=== PATIENT | male | born 1950 | race Hispanic/Latino ===

== ENCOUNTER 2018-10-03 07:35 | Inpatient (IN) | payer MEDICARE ==
--- NOTE | 2018-10-03 07:56 | ED PDOC ---
Arrival/HPI - General Historian: Patient, Spouse, Family (daughter and son) - History of Present Illness Narrative History of Present Illness (Text): This is a 68 year old male with PMH of NIDDM2, HTN, hypercholesterolemia, obesity, smoking who [place] ED [place] after experiencing worsening chest pain for 4 days. Currently, pt is asymptomatic and has no compla ints. Pt describes the pain as burning sensation in the midsternum, radiating to the back and epigastric area, associated with extertional SOB. Pt denied visual changes, ripping or tearing quality to the pain, dizziness, lightheadedness, leg pain or swelling. Patient and family (daughter and ) report that the patient was seen by the doctor on the cruise ship yesterday 10/02/18 who performed and EKG where it was noted to show STEMI in leads II, III, aVF. Pt was given ASA, NTG, Heparin and fibrinolytic, and started on plavix. Pt received Lovenox, ASA this morning. Denies fever, chills, chest pain, sob, palpitations, abdominal pain, n/v/d, weakness, lightheadedness, numbness or tingling, focal weakness. 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 PMH: NIDDM2, HTN, hypercholesterolemia, obesity PSH: cholecystectomy many years ago, knee replacement years ago, right toe amputation march 2018 Meds: See MAR Allx: NKDA Social Hx: (+) etoh, (+) smoking, (-) illcit drug use Time/Duration: < week <David Jarrell - Last Filed: 10/03/18 08:55> <John Ireland - Last Filed: 10/03/18 10:09> - General Chief Complaint: Chest Pain Past Medical History - Provider Review Nursing Documentation Reviewed: Yes - Travel History If Yes, travel location?: [place] - Cardiac Hx Hypertension: Yes - Endocrine/Metabolic Hx Diabetes Mellitus Type 2: Yes - Psychiatric Hx Substance Use: No - Surgical History Other/Comment: R 2nd toe amputation. L knee replacement - Anesthesia Hx Anesthesia: Yes Hx Anesthesia Reactions: No Hx Malignant Hyperthermia: No <David Jarrell - Last Filed: 10/03/18 08:55> Family/Social History - Physician Review Nursing Documentation Reviewed: Yes Family/Social History: Unknown Family HX Smoking Status: Heavy Smoker > 10 Cigarettes Daily Hx Alcohol Use: Yes Frequency of alcohol use: Socially Hx Substance Use: No <David Jarrell Last Filed: 10/03/18 08:55> Allergies/Home Meds <David Jarrell Last Filed: 10/03/18 08:55> <John Ireland - Last Filed: 10/03/18 10:09> Allergies/Adverse Reactions: Allergies No Known Allergies Allergy (Verified 10/03/18 07:48) Home Medications: Home Meds Medication Instructions Recorded Confirmed Montelukast [Singulair] 10 mg PO DAILY 10/03/18 10/03/18 RX: Ibuprofen [Motrin Tab] 800 mg PO DAILY 10/03/18 10/03/18 RX: Ramipril [Altace] 40 mg PO DAILY 10/03/18 10/03/18 RX: amLODIPine [Norvasc] 5 mg PO DAILY 10/03/18 10/03/18 RX: hydroCHLOROthiazide [Microzide] 12.5 mg PO DAILY 10/03/18 10/03/18 RX: metFORMIN [glucOPHAGE] 500 mg PO BID 10/03/18 10/03/18 Review of Systems - Review of Systems Constitutional: Normal Eyes: Other (double vision, chronic as per pt) ENT: Normal Respiratory: SOB Cardiovascular: Chest Pain, GARCIA Gastrointestinal: Other (reflux) Musculoskeletal: Back Pain Skin: Normal Neurological: Normal Psychiatric: Normal <David Jarrell - Last Filed: 10/03/18 08:55> - Physician Review All systems were reviewed & negative as marked: Yes <John Ireland - Last Filed: 10/03/18 10:09> Physical Exam Vital Signs Temp Pulse Resp BP Pulse Ox 10/03/18 07:35 98.3 F 84 18 143/84 99 Temperature: Afebrile Blood Pressure: Normal Pulse: Regular Respiratory Rate: Normal Appearance: Positive for: Well-Appearing, Non-Toxic, Comfortable Pain Distress: None Mental Status: Positive for: Alert and Oriented X 3 - Systems Exam Head: Present: Atraumatic, Normocephalic Extroacular Muscles: Present: EOMI Mouth: Present: Moist Mucous Membranes Neck: Present: Normal Range of Motion. No: Bruit Respiratory/Chest: Present: Clear to Auscultation. No: Respiratory Distress, Accessory Muscle Use, Wheezes, Rales, Rhonchi Cardiovascular: Present: Normal S1, S2, Irregular Rhythm (skipped beats, likely PVCs as seen on EKG), Peripheal Pulses Present (2+ bilateral radial pulses, 2+ bilateral DP pulsesl). No: Murmurs, Rub, Gallop Abdomen: Present: Normal Bowel Sounds. No: Tenderness, Distention, Rebound, Guarding Back: Present: Normal Inspection Upper Extremity: Present: Normal Inspection, NORMAL PULSES, Capillary Refill < 2s. No: Edema Lower Extremity: Present: Normal Inspection, Edema (1+ pitting edema bilateraly; chronic venous stasis changes bilaterally), NORMAL PULSES. No: CALF TENDERNESS Neurological: Present: GCS=15 Skin: Present: Warm, Dry Psychiatric: Present: Alert, Oriented x 3 <David Jarrell - Last Filed: 10/03/18 08:55> Vital Signs Reviewed: Yes Vital Signs Temp Pulse Resp BP Pulse Ox 10/03/18 08:40 95 H 136/70 10/03/18 08:38 95 H 18 136/70 98 10/03/18 07:35 98.3 F 84 18 143/84 99 <John Ireland - Last Filed: 10/03/18 10:09> Medical Decision Making ED Course and Treatment: CBC, CMP, PT/PTT/INR, troponin, BNP, CXR, EKG. Pt placed NPO in case of cardiac catheterization. 10/03/18 08:[address] Pleitez, who will admit the pt to telemetry. Dr. Pleitez requests Cardiology consult, Dr. Katz. 10/03/18 08:22 Pt noted to be tachycardic at 100, will give atenolol 50 mg PO. 10/03/18 08:[address] Katz, who states that he will evaluate the pt. - RAD Interpretation Narrative RAD Interpretations (Text): 10/03/18 08:55 Date of service: 10/03/2018 HISTORY: recent [place] COMPARISON: No prior. FINDINGS: LUNGS: No active pulmonary disease. PLEURA: No significant pleural effusion identified, no pneumothorax apparent. CARDIOVASCULAR: No aortic atherosclerotic calcification present. Normal cardiac size. No pulmonary vascular congestion. OSSEOUS STRUCTURES: No significant abnormalities. VISUALIZED UPPER ABDOMEN: Normal. OTHER FINDINGS: None. IMPRESSION: No active disease. Vmware Architect: Radiologist - EKG Interpretation EKG Interpretation (Text): EKG shows NSR at 99 with frequent PVCs, no acute STTW changes, Q waves in inferior leads; TN prolonged at 204, QTc is 459; as read by ED attending. Interpreted by ED Physician: Yes <David Jarrell - Last Filed: 10/03/18 08:55> ED Course and Treatment: 10/03/18 08:46 Seen and examined with the resident. Our history and physical exam reveals a morbidly obese gentleman who developed chest pain 4 days prior to arrival. He was on the cruise ship. He saw the cruise ship approximately 30 hours prior to arrival. EKG showed ST elevations inferiorly. He was treated with TPA aspirin nitroglycerin Lovenox and Plavix. He is currently pain-free. His EKG now has Q waves inferiorly with frequent unifocal PVCs. He is currently pain-free. His lungs are clear. Atenolol was added today. I spoke with and Dr. Katz, both of whom will see the patient in the emergency department. Dr. Pleitez agrees to admit to telemetry. - Lab Interpretations Lab Results: 10/03/18 08:25 Lab Results 10/03/18 08:25: PT 12.4, INR 1.08, APTT 33.7 10/03/18 08:25: WBC 9.0, RBC 4.43, Hgb 13.5 L, Hct 39.5 L, MCV 89.2, MCH 30.5, MCHC 34.2, RDW 13.6, Plt Count 212, MPV 9.0, Gran % 75.6 H, Lymph % (Auto) 16.0 L, [place] % (Auto) 7.3 H, Eos % (Auto) 0.8 L, Baso % (Auto) 0.3, Gran # 6.78 H, Lymph # (Auto) 1.4, [place] # (Auto) 0.7 H, Eos # (Auto) 0.1, Baso # (Auto) 0.03 - RAD Interpretation Radiology Orders: 10/03/18 08:03 CXR [CHEST PORTABLE] [RAD] Stat - Medication Orders Current Medication Orders: Discontinued Medications Atenolol (Tenormin) 50 mg PO STAT STA Stop: 10/03/18 08:23 Last Admin: 10/03/18 08:40 Dose: 50 mg MAR Pulse and Blood Pressure Document 10/03/18 08:40 GMD (Rec: 10/03/18 08:41 GMD [id number]) Pulse Pulse Rate (60-90 beats/min) 95 Blood Pressure Blood Pressure (100/60-150/90 mm Hg) 136/70 <John Ireland - Last Filed: 10/03/18 10:09> Disposition/Present on Arrival - Present on Arrival History of DVT/PE: No History of Uncontrolled Diabetes: No Urinary Catheter: No History of Decub. Ulcer: No History Surgical Site Infection Following: None <David Jarrell - Last Filed: 10/03/18 08:55> - Present on Arrival Any Indicators Present on Arrival: No History of DVT/PE: No History of Uncontrolled Diabetes: No Urinary Catheter: No History of Decub. Ulcer: No - Disposition Have Diagnosis and Disposition been Completed?: Yes Disposition Time: 08:49 Patient Plan: Admission, Telemetry <John Ireland - Last Filed: 10/03/18 10:09> - Disposition Diagnosis: Myocardial infarction Disposition: HOSPITALIZED Patient Problems: Current Active Problems Problem Status Onset Myocardial infarction Acute Condition: FAIR
--- NOTE | 2018-10-03 08:39 | RAD ---
Date of service: 10/03/2018 HISTORY: recent [place] COMPARISON: No prior. FINDINGS: LUNGS: No active pulmonary disease. PLEURA: No significant pleural effusion identified, no pneumothorax apparent. CARDIOVASCULAR: No aortic atherosclerotic calcification present. Normal cardiac size. No pulmonary vascular congestion. OSSEOUS STRUCTURES: No significant abnormalities. VISUALIZED UPPER ABDOMEN: Normal. OTHER FINDINGS: None. IMPRESSION: No active disease.
[2018-10-03 08:44] LABS: INR 1.08; PARTIAL THROMBOPLASTIN TIME 33.7 Seconds (25.1-36.5); PROTHROMBIN TIME 12.4 SECONDS (9.4-12.5)
[2018-10-03 08:45] LABS: BASO # 0.03 K/mm3 (0.0-2.0); BASO % 0.3 % (0.0-3.0); EOS # 0.1 (0.0-0.7); EOS % 0.8 % (1.5-5.0); GRAN # 6.78 (1.4-6.5); GRAN % 75.6 % (50.0-68.0); HEMOGLOBIN 13.5 g/dL (14.0-18.0); LYMPH # 1.4 (1.2-3.4); MEAN CELL VOLUME 89.2 fl (80.0-105.0); MEAN CORPUSCULAR HEMOGLOBIN 30.5 pg (25.0-35.0); MEAN CORPUSCULAR HGB CONC 34.2 g/dl (31.0-37.0); MONO # 0.7 (0.1-0.6); MONO % 7.3 % (1.0-6.0); RBC 4.43 10^6/uL (3.5-6.1); RED CELL DISTRIBUTION WIDTH 13.6 % (11.5-14.5)
[2018-10-03 08:47] LABS: ALB/GLOB RATIO 1.2 (1.1-1.8); ALT/SGPT 38 U/L (7-56); AST/SGOT 37 U/L (17-59); BLOOD UREA NITROGEN 13 mg/dL (7-21); CALCIUM 9.4 mg/dL (8.4-10.5); GFR NON-AFRICAN AMERICAN > 60
[2018-10-03 09:11] LABS: B-TYPE NATRIURETIC PEPTIDE 782 pg/mL (0-450); TROPONIN I 1.24 ng/mL
[2018-10-03] MEDS: Enoxaparin 120 mg Syringe SC SCH ×2 (10:39→22:17)
[2018-10-03] MEDS: Insulin Reg-MEDIUM-Coverage SC SCH ×3 (12:12→22:12)
--- NOTE | 2018-10-03 13:06 | HP ---
DATE OF EXAM: HISTORY OF PRESENT ILLNESS: I was called onto the emergency room, he is from the cruise ship, he was having problems on the cruise ship and now he is here in our emergency room. He is a 68-year-old white man who had chest pain for 4 days, eventually went to the doctor on the cruise ship. He felt like there was ripping and a tearing quality of pain, indigestion in his upper mid chest. He was noted to have a STEMI in leads II, III and aVF and inferior wall TN. He was given aspirin, nitroglycerin, heparin, fibrinolytic and started on Plavix and Lovenox. He is a 68-year-old man. PAST MEDICAL HISTORY: Diabetes, hypertension, high cholesterol, obesity, smoker, drinks. PAST SURGICAL HISTORY: He had a cholecystectomy, a knee replacement, right toe amputation. ALLERGIES: NO KNOWN DRUG ALLERGIES. SOCIAL HISTORY: He smokes, he drinks but no illicit drugs. He comes in with chest pain and inferior wall TN, hypertension and diabetes in the family. MEDICATIONS: He is on Motrin, Singulair, Altace, Norvasc, Microzide and Glucophage. Due to the treatment in his cruise ship, I am not going to give any Altace, Motrin, Singulair and the Microzide. Glucophage was given and the Altace. I will discuss this with the clothing presser about what medicines he wants him on as far as Plavix or Lovenox. REVIEW OF SYSTEMS: No acute vision or hearing changes. He did have double vision at one time but not now, he says it is chronic, it comes and goes. No sore throat. He had shortness of breath. He had chest pain with dyspnea on exertion. He had reflex, indigestion. He had back pain, chest pain. No skin issues. No numbness or tingling. No anxiety or depression. PHYSICAL EXAMINATION: GENERAL: He is well appearing, nontoxic, comfortable right now and not Alert and oriented x3. VITAL SIGNS: He has a 98.3 temperature, 84 pulse, 18 respiratory rate, 143/84 blood pressure, 99% O2 sat room air. HEENT: Head is atraumatic, normocephalic. Extraocular muscles are intact. Pupils are reactive to light. Throat is moist. NECK: Supple. HEART: Regular rate with regular beats. PVCs in the 80s. LUNGS: Decreased breath sounds bilaterally. Poor inspiration, but no wheezes, rhonchi or rales. ABDOMEN: Morbidly obese, nontender, positive bowel sounds. No guarding. No rebound. No CVA tenderness. EXTREMITIES: Have +1/4 pitting edema in the bilateral lower extremities. NEUROLOGIC: GCS is 15. Cranial nerves II-XII are grossly intact. SKIN: Warm and dry. LYMPH NODES: Thyroid is midline. No palpable appreciable lymphadenopathy. DIAGNOSTICS AND LABORATORY DATA: He had multiple tests that were done. Chest x-ray showed no acute disease. Sodium 135, potassium 4.1, BUN 30, creatinine 0.7, GFR is greater than 60, sugar is 135, calcium is 9.4, phos is 5.3, magnesium 1.8, total bili is 0.78, AST is 37, ALT is 38, alk phos is 70. Troponin I is 1.24, high, we will check two more. is 782. Total protein is 7.4, albumin is 4, INR is 1.08. White count is 9, hemoglobin 13.5, hematocrit 39.5, platelets are 212. PLAN: He will have his Norvasc, I will give him some Lasix. He was given Tenormin in the emergency room. I will discuss this with the clothing presser that would also want him on. The plan I believe is scheduled for Friday for cardiac cath. He had a STEMI with acute inferior wall TN. Karthikeyan Pleitez DO MTDD
[2018-10-03 15:40] VITALS: BMI 48.8
--- NOTE | 2018-10-03 16:03 | CON ---
DATE OF CONSULTATION: 10/03/2018 CONSULT SERVICE: Cardiology. REASON FOR CONSULTATION: Acute code STEMI, status post tPA, inferior wall VT in cruise with complete resolution of ST segment and chest pain. BRIEF CLINICAL HISTORY: This is a 68-year-old morbidly obese male with past medical history of diabetes, hypertension, hyperlipidemia, obesity, active tobacco abuse a pack a day since the age of 12, who was in cruise ship, started chest pain Friday, used a lot of antacids and rubbed the Greg-Casas, but then the burning sensation recurred again on Friday, and the third time the patient had it on the while walking on the cruise for a long walk. Then, he went to the clinic in the cruise, found to be acute ST-elevation in II, III, aVF. They gave sublingual nitro and then gave fibrinolytic tPA with complete resolution of chest pain and resolution of the ST segment. The patient now was transferred to the [facility]. In the ER, the patient was completely chest pain free, though EKG showed some PVCs, but no ST elevation noted. Recent cardiac workup 4 years ago with a stress test and echo, he was told was negative, before left knee surgery. PAST MEDICAL HISTORY: Significant for diabetes, hypertension, hyperlipidemia, and morbid obesity. PAST SURGICAL HISTORY: Significant for left total knee joint replacement 4 years ago. Also significant for cholecystectomy many years ago and right toe amputation in 2018. SOCIAL HISTORY: Active tobacco abuse, a pack a day, started at the age of 12. Alcohol abuse only during the cruise, but usually drinks socially, but in the cruise, he drank a couple of drinks off and on. CURRENT MEDICATIONS: The patient is taking Ramipril 40 mg daily, Singulair 10, hydrochlorothiazide, amlodipine, ibuprofen, and Motrin. ALLERGIES: NO KNOWN DRUG ALLERGIES. REVIEW OF SYSTEMS: A 14-point review of systems is negative except a recent history of the chest pain and dyspnea on exertion while the patient was at a cruise and at that time got the sublingual nitro. Lovenox was given and tPA was given. Since then, chest pain completely resolved. PHYSICAL EXAMINATION VITAL SIGNS: Height of the patient is 6 feet and 0.5 inch, weight of the patient is 360 pounds, and body mass index 50 kg/m2. Temperature afebrile, heart rate 95, blood pressure 136/70. HEENT: PERRLA. Extraocular muscles are intact. NECK: Supple. No carotid bruit or thyromegaly. CHEST: Clear to auscultation. HEART: S1 and S2, regular. ABDOMEN: Soft. EXTREMITIES: Clubbing and cyanosis negative. A scar is noted in the left knee joint from a total knee joint replacement. LABORATORY DATA: EKG shows normal sinus, occasional PVCs with no acute ST-T changes noted. Blood workup, WBC 9, hemoglobin 13.5, hematocrit 39.5, platelet count 212. Chemistries show sodium 135, potassium 4.1, chloride 101, carbon dioxide 26, anion gap of 13, BUN 13, creatinine 0.7. Troponin 1.24. IMPRESSION: Acute inferior wall myocardial infarction. This is a 68-year-old male with a past medical history of diabetes, hypertension, hyperlipidemia, morbid obesity, active tobacco abuse, is status post left knee joint replacement 4 years ago, who was in cruise, developed acute ST-segment myocardial infarction, status post tPA, and Lovenox was given, now with the resolution of the chest pain and ST-segment with occasional PVC. RECOMMENDATIONS: We will start Lovenox, aspirin, and load with the Plavix. We will get echo to assess LV function, lipid profile, TSH, and hemoglobin A1c. If the patient remains chest pain free, we will do the cardiac catheterization on Friday. Discussed with the family, , name Val, the daughter, other significant family members, and the patient as well. The patient agreed. We will closely monitor. Further recommendations depending on the hospital course. We will follow with you. Thank you, Dr. Pleitez, for providing us the opportunity in taking care of the patient. Reny Katz MD
[2018-10-03] MEDS ORDERED: AZELASTINE 0.1% IH PRN (17:03)
[2018-10-04 08:14] LABS: HEMOGLOBIN 13.1 g/dL (14.0-18.0); MEAN CELL VOLUME 90.6 fl (80.0-105.0); MEAN CORPUSCULAR HEMOGLOBIN 29.4 pg (25.0-35.0); MEAN CORPUSCULAR HGB CONC 32.5 g/dl (31.0-37.0); MEAN PLATELET VOLUME 9.1 fl (7.0-11.0); RBC 4.45 10^6/uL (3.5-6.1); RED CELL DISTRIBUTION WIDTH 13.7 % (11.5-14.5); WHITE BLOOD COUNT 8.8 10^3/uL (4.5-11.0)
[2018-10-04 08:30] LABS: ALB/GLOB RATIO 1.2 (1.1-1.8); ALBUMIN 4.1 g/dL (3.0-4.8); ALT/SGPT 40 U/L (7-56); AST/SGOT 37 U/L (17-59); CALCIUM 9.3 mg/dL (8.4-10.5); HDL CHOLESTEROL 39 mg/dL (29-60)
[2018-10-04 08:32] LABS: BLOOD UREA NITROGEN 14 mg/dL (7-21); GFR NON-AFRICAN AMERICAN > 60
[2018-10-04 08:41] LABS: LDL CHOLESTEROL 52 mg/dL (0-129)
--- NOTE | 2018-10-04 09:03 | CP.PCM.PN ---
Subjective - Date & Time of Evaluation Date of Evaluation: 10/04/18 Time of Evaluation: 06:20 - Subjective Subjective: Awake, alert, no distress, denies chest pain or shortness of breath Reason for consultation and follow up: Cardiac evaluation of chest pain, STEMI post TPA in cruise ship, Seen and examined by me and Dr. Katz Objective - Vital Signs/Intake and Output Vital Signs (last 24 hours): Temp Pulse Resp BP Pulse Ox 98.4 F 69 22 122/72 100 10/04/18 06:00 10/04/18 06:00 10/04/18 06:00 10/04/18 06:00 10/04/18 06:00 Intake and Output: 10/04/18 10/04/18 06:59 18:59 Intake Total Output Total Balance - Medications Medications: Current Medications Amlodipine Besylate (Norvasc) 5 mg PO DAILY [facility] Last Admin: 10/03/18 10:40 Dose: Not Given Aspirin (Ecotrin) 81 mg PO DAILY [facility] Last Admin: 10/03/18 10:42 Dose: Not Given Enoxaparin Sodium (Lovenox) 120 mg SC Q12H [facility]; Protocol Last Admin: 10/03/18 22:17 Dose: 120 mg Home Med (Home Med) 1 unit IH DAILY PRN PRN Reason: Allergy symptoms Insulin Human Regular (Humulin R Med) 0 units SC [facility]; Protocol Last Admin: 10/03/18 22:12 Dose: Not Given Lisinopril (Zestril) 2.5 mg PO DAILY [facility] Last Admin: 10/03/18 10:38 Dose: 2.5 mg Metoprolol Tartrate (Lopressor) 25 mg PO BID [facility] Last Admin: 10/03/18 17:44 Dose: 25 mg - Labs Labs: 10/04/18 07:30 10/04/18 07:30 PT 12.4 SECONDS (9.4-12.5) 10/03/18 08:25 INR 1.08 10/03/18 08:25 APTT 33.7 Seconds (25.1-36.5) 10/03/18 08:25 - Constitutional Appears: Non-toxic, No Acute Distress - Head Exam Head Exam: NORMAL INSPECTION, NORMOCEPHALIC - Eye Exam Eye Exam: Normal appearance Pupil Exam: NORMAL ACCOMODATION - ENT Exam ENT Exam: Mucous Membranes Moist, Normal Exam - Respiratory Exam Respiratory Exam: Clear to Ausculation Bilateral, NORMAL BREATHING PATTERN - Cardiovascular Exam Cardiovascular Exam: REGULAR RHYTHM, +S1, +S2 Additional comments: Telemetry NSR 70-80's - GI/Abdominal Exam GI & Abdominal Exam: Soft, Normal Bowel Sounds - Extremities Exam Extremities Exam: Full ROM, Normal Capillary Refill - Neurological Exam Neurological Exam: Alert, Awake, Oriented x3 - Psychiatric Exam Psychiatric exam: Normal Affect, Normal Mood - Skin Skin Exam: Dry, Normal Color, Warm Assessment and Plan - Assessment and Plan (Free Text) Assessment: A 68 year old morbidly obese male who was brought to the ER from [place] due to worsening chest pain for the past 4 days prior to admission. Mid sternal chest pain radiating to back and epigastric area associated with shortness of breath. He thought to be indigestion and took antacids and rubbed Greg-Casas. He was seen by Cruise Physician and 12 lead EKG showed STEMI in leads II,III,AVF. He was given TPA, Aspirin and Nitroglycerin and started on Plavix. Chest pain was resolved and resolution of ST segment elevations. He lives in [facility] and follows up with Dr. Robles. History of hypertension,NIDDM2, HTN, hypercholesterolemia, obesity, cholecystectomy, knee replacement, right toe amputation,current smoker since age 12 year old. occasional alcohol drinker. In [facility] [place], patient chest pain free, EKG, no ST elevations.Brilinta given. Cardiac catheterization on Friday. Plan: Denies chest pain, denies shortness of breath For cardiac catheterization Friday NPO post midnight except medications BUN/Creatinine normal H/H within normal range ECHO done yesterday awaiting final result Brilinta 180 mg given, Brilinta 80 mg BID On Norvasc 5 mg daily,ASA 81 mg daily, Lovenox 120 mg BID,Lisinopril 2.5 mg daily Lopressor 25 mg BID Continue current medications Continue current treatment Chart reviewed Will follow up Plan and treatment discussed with Dr. Katz
--- NOTE | 2018-10-04 09:17 | CARD ---
APPROVED REPORT Date of service: 10/04/2018 EKG Measurement Heart [id number] [id number] <Conclusion> Sinus rhythm with 1st degree AV block with occasional premature ventricular complexes Otherwise normal ECG
[2018-10-04] MEDS: Insulin Reg-MEDIUM-Coverage SC SCH ×4 (09:53→22:22)
[2018-10-04] MEDS: Enoxaparin 120 mg Syringe SC SCH (09:53)
--- NOTE | 2018-10-04 11:16 | CARD ---
APPROVED REPORT Date of service: 10/03/2018 EKG Measurement Heart [id number] [id number] <Conclusion> Sinus rhythm with frequent premature ventricular complexes Cannot rule out Inferior infarct, age undetermined Abnormal ECG
--- NOTE | 2018-10-04 11:24 | CARD ---
APPROVED REPORT Date of service: 10/03/2018 EXAM: Two-dimensional and M-mode echocardiogram with Doppler and color Doppler. INDICATION CP 2D DIMENSIONS IVSd1.2 (0.7-1.1cm)LVDd5.0 (3.9-5.9cm) PWd1.4 (0.7-1.1cm)LVDs3.4 (2.5-4.0cm) FS (%) 32.5 %LVEF (%)60.7 (>50%) M-Mode DIMENSIONS Left Atrium (MM)4.50 (2.5-4.0cm)Aortic Root3.70 (2.2-3.7cm) Aortic Cusp Exc.2.40 (1.5-2.0cm) Aortic Valve AoV Peak Lffmuhzy927.0cm/Jimmy Peak GR.8mmHg Mitral Valve MV E Dhvasqsj03.3cm/sMV A Yvorxbnq56.8cm/sE/A ratio1.0 TDI Lateral E' Peak V12.70cm/sMedial E' Peak V7.02cm/sE/Lateral E'7.0 E/Medial E'12.7 Tricuspid Valve TR Peak [id number]/sRAP [id number] Peak Gr.11mmHg [id number] LEFT VENTRICLE The left ventricle is normal size. There is mild concentric left ventricular hypertrophy. low normal. EF-50-55% There is normal LV segmental wall motion. Transmitral Doppler flow pattern is Grade III-reversible restrictive diastolic dysfunction. No left ventricle thrombus noted on this study. There is no ventricular septal defect visualized. There is no left ventricular aneurysm. There is no mass noted in the left ventricle. RIGHT VENTRICLE The right ventricle is normal size. There is normal right ventricular wall thickness. The right ventricular systolic function is normal. ATRIA The left atrium is mildly dilated. The right atrium size is normal. The interatrial septum is intact with no evidence for an atrial septal defect. AORTIC VALVE The aortic valve is thickened but opens well. The aortic valve is mildly to moderately sclerotic. No aortic regurgitation is present. There is no aortic valvular stenosis. There is no aortic valvular vegetation. MITRAL VALVE The mitral valve is thickened but opens well. Mitral regurgitation is trace. There is no mitral valve stenosis. There is no evidence of mitral valve prolapse. TRICUSPID VALVE The tricuspid valve leaflets are thickened , but open well. There is trace tricuspid regurgitation.RVSP-21 mmof Hg. There is no tricuspid valve stenosis. There is no tricuspid valve prolapse or vegetation. PULMONIC VALVE The pulmonic valve is not well visualized. GREAT VESSELS The aortic root is normal in size. The ascending aorta is normal in size. The pulmonary artery is normal. The IVC is normal in size and collapses >50% with inspiration. PERICARDIAL EFFUSION There is no pleural effusion. There is no pericardial effusion. <Conclusion> There is mild concentric left ventricular hypertrophy. low normal. EF-50-55% Mitral regurgitation is trace. There is trace tricuspid regurgitation.RVSP-21 mmof Hg. The IVC is normal in size and collapses >50% with inspiration. There is no pericardial effusion. no thrombus or vegetation noted. S/p IWMI, S/p TPA given in cruise ship 2days ago.
--- NOTE | 2018-10-04 13:31 | PN ---
DATE: 10/04/2018 SUBJECTIVE: [place]. He had a chest pain and [place], coronary artery disease. He was given tPA in the cruise ship. He is here resting in our facility. He can go for cardiac cath tomorrow with Dr. Katz. MEDICATIONS: He is on Brilinta, Ecotrin, insulin coverage, Lopressor, Lovenox, Norvasc and Zestril. PHYSICAL EXAMINATION: VITAL SIGNS: He has a 98.4 temp, 69 pulse, 122/72 blood pressure, 22 respiratory rate, 100% O2 sat on nasal cannula. GENERAL: He was very short of breath yesterday with chest pain. Today, he is better and less short of breath. He was able to walk to the bathroom and back to the bed without having shortness of breath. He looks better on the face too. HEENT: Head is atraumatic. Throat is moist. NECK: Supple. HEART: Regular rate. LUNGS: Decreased breath sounds, but clear bilaterally. ABDOMEN: Morbidly, morbidly obese. EXTREMITIES: He has got trace edema in the feet. LABORATORY DATA: He had lab tests done. He has an 8.8 white count, 13.1 hemoglobin, 40.3 hematocrit with 217 platelets. He has 1.08 INR. He has 136 sodium, potassium 4.2, BUN 14, creatinine 0.8, GFR is greater than 60, sugar is 118, calcium is 9.3. Total bili is 0.8, AST is 37, ALT is 40, alk phos 72. Troponin I was 1.02, less than yesterday. Total protein 7.5. TSH is 1.22. He was seen by Cardiology. Chest x-ray with no active disease. ASSESSMENT AND PLAN: He had a ST-elevation myocardial infarction on the cruise ship, status post tPA in the cruise ship and now is admitted for cardiac catheterization and possible stent tomorrow. We will continue with aggressive treatment and care. We discussed a diet plan for him moving forward, went over low carb, low salt, walking, not to eat in restaurants. He kind of understood what to do, just a matter of doing it. That was a good discussion. We will check his labs tomorrow, hopefully do well tomorrow. Karthikeyan Pleitez DO [facility] # [id number]
--- NOTE | 2018-10-04 14:41 | PN ---
DATE: 10/04/2018 REASON FOR CONSULTATION AND FOLLOWUP: Acute inferior wall ND, status post TPA in the cruise. He has chest pain. SUBJECTIVE: The patient denies any chest pain, shortness of breath or any palpitation. This note is in addition to dictated by nurse practitioner. The patient is asymptomatic. Started on Brilinta, aspirin and Lovenox, as well as lisinopril and beta rodrigo. Scheduled for cardiac catheterization tomorrow. Discussed with the patient the patient is agreeable. We will proceed for cardiac catheterization tomorrow, get echo also, further recommendation depending on cardiac catheterization. TSH 1.22. Total cholesterol 105, LDL 52, HDL 39, total 164. We will put low dose of atorvastatin for plaque stabilization, though cholesterol is low. Awaiting for hemoglobin A1c. We will keep n.p.o. after 12 midnight for cardiac catheterization tomorrow. Thank you Dr. Pleitez for providing us the opportunity in taking care of the patient, Mike Womack. Reny Katz MD
--- NOTE | 2018-10-05 06:07 | CP.PCM.PN ---
Subjective - Date & Time of Evaluation Date of Evaluation: 10/05/18 Time of Evaluation: 06:20 - Subjective Subjective: Denies chest pain and shortness of breath, Awake, alert, no distress, for cath today Reason for consultation and follow up: Cardiac evaluation of chest pain, STEMI post TPA in cruise ship, Seen and examined by me and Dr. Katz Objective - Vital Signs/Intake and Output Vital Signs (last 24 hours): Temp Pulse Resp BP Pulse Ox 97.8 F 77 20 122/79 100 10/05/18 00:01 10/05/18 05:59 10/05/18 00:01 10/05/18 00:01 10/05/18 00:01 Intake and Output: 10/04/18 10/05/18 18:59 06:59 Intake Total 1440 0 Output Total 900 Balance 540 0 - Medications Medications: Current Medications Amlodipine Besylate (Norvasc) 5 mg PO DAILY [facility] Last Admin: 10/04/18 09:52 Dose: 5 mg Aspirin (Ecotrin) 81 mg PO DAILY [facility] Last Admin: 10/04/18 09:53 Dose: 81 mg Atorvastatin Calcium (Lipitor) 20 mg PO DIN [facility] Last Admin: 10/04/18 17:31 Dose: 20 mg Home Med (Home Med) 1 unit IH DAILY PRN PRN Reason: Allergy symptoms Insulin Human Regular (Humulin R Med) 0 units SC [facility]; Protocol Last Admin: 10/04/18 22:22 Dose: Not Given Lisinopril (Zestril) 2.5 mg PO DAILY [facility] Last Admin: 10/04/18 09:52 Dose: 2.5 mg Metoprolol Tartrate (Lopressor) 25 mg PO BID [facility] Last Admin: 10/04/18 17:31 Dose: 25 mg Ticagrelor (Brilinta) 90 mg PO BID [facility] Last Admin: 10/04/18 17:31 Dose: 90 mg - Labs Labs: 10/04/18 07:30 10/04/18 07:30 PT 12.4 SECONDS (9.4-12.5) 10/03/18 08:25 INR 1.08 10/03/18 08:25 APTT 33.7 Seconds (25.1-36.5) 10/03/18 08:25 - Constitutional Appears: Non-toxic, No Acute Distress - Head Exam Head Exam: NORMAL INSPECTION, NORMOCEPHALIC - Eye Exam Eye Exam: Normal appearance Pupil Exam: NORMAL ACCOMODATION - ENT Exam ENT Exam: Mucous Membranes Dry - Respiratory Exam Respiratory Exam: Decreased Breath Sounds, Clear to Ausculation Bilateral, NORMAL BREATHING PATTERN - Cardiovascular Exam Cardiovascular Exam: REGULAR RHYTHM, +S1, +S2 Additional comments: telemetry NSR 70's - GI/Abdominal Exam GI & Abdominal Exam: Soft, Normal Bowel Sounds - Extremities Exam Extremities Exam: Full ROM, Normal Capillary Refill - Neurological Exam Neurological Exam: Alert, Awake, Oriented x3 - Psychiatric Exam Psychiatric exam: Normal Affect, Normal Mood - Skin Skin Exam: Dry, Normal Color, Warm Assessment and Plan - Assessment and Plan (Free Text) Assessment: A 68 year old morbidly obese male who was [place] due to worsening chest pain for the past 4 days prior to admission. Mid sternal chest pain radiating to back and epigastric area associated with shortness of breath. He thought to be indigestion and took antacids and rubbed Greg-Casas. He was seen by Cruise Physician and 12 lead EKG showed STEMI in leads II,III,AVF. He was given TPA, Aspirin and Nitroglycerin and started on Plavix. Chest pain was resolved and resolution of ST segment elevations. He lives in [facility] and follows up with Dr. Robles. History of hypertension,NIDDM2, HTN, hypercholesterolemia, obesity, cholecystectomy, knee replacement, right toe amputation,current smoker since age 12 year old. occasional alcohol drinker. At [facility], patient chest pain free, EKG, no ST elevations. Brilinta given. For cardiac catheterization today, no distress. Plan: For cardiac catheterization today NPO post midnight except medications Telemetry NSR 70's Controlled blood pressure On Norvasc 5 mg daily,ASA 81 mg daily, Lovenox 120 mg BID,Lisinopril 2.5 mg daily Lopressor 25 mg BID, Brilinta 80 mg BID Continue current medications Continue current treatment Lifestyle modification Smoking cessation Weight reduction Chart reviewed Further recommendation after cardiac catheterization Will follow up Plan and treatment discussed with Dr. Katz
[2018-10-05 07:14] LABS: HEMOGLOBIN 12.6 g/dL (14.0-18.0); MEAN CELL VOLUME 90.6 fl (80.0-105.0); MEAN CORPUSCULAR HEMOGLOBIN 29.5 pg (25.0-35.0); MEAN CORPUSCULAR HGB CONC 32.6 g/dl (31.0-37.0); MEAN PLATELET VOLUME 9.2 fl (7.0-11.0); RBC 4.27 10^6/uL (3.5-6.1); RED CELL DISTRIBUTION WIDTH 13.7 % (11.5-14.5); WHITE BLOOD COUNT 7.6 10^3/uL (4.5-11.0)
[2018-10-05 07:32] LABS: ALB/GLOB RATIO 1.1 (1.1-1.8); ALBUMIN 3.9 g/dL (3.0-4.8); ALT/SGPT 42 U/L (7-56); AST/SGOT 43 U/L (17-59); BLOOD UREA NITROGEN 17 mg/dL (7-21); CALCIUM 9.2 mg/dL (8.4-10.5); GFR NON-AFRICAN AMERICAN > 60
[2018-10-05] MEDS: Insulin Reg-MEDIUM-Coverage SC SCH ×4 (08:00→22:29)
--- NOTE | 2018-10-05 08:18 | PN ---
DATE: 10/05/2018 SUBJECTIVE: He is going to go for a cardiac cath today with Dr. Marion. He is comfortable. He is sitting out of bed to chair. He notes not to eat anything this morning. [place] is from [place]. He had a chest pain. He had an RI in the cruise ship, CAD and inferior wall RI. He has got diabetes, STEMI. MEDICATIONS: He is on Brilinta, Ecotrin, Lipitor, Lopressor, Norvasc and Zestril. PHYSICAL EXAMINATION: VITAL SIGNS: 98.5 temp, 78 pulse, 128/80 blood pressure, 20 respiratory rate, 97% O2 sat on room air. HEENT: Head is atraumatic, normocephalic. HEART: Regular rate. LUNGS: Decreased breath sounds, but clear. No wheezes. No rhonchi. No rales. ABDOMEN: Morbidly obese, soft, nontender. Positive bowel sounds. No guarding, no rebound, no CVA tenderness. EXTREMITIES: Trace edema if any in the legs. LABORATORY DATA: He has a 7.6 white count, 12.6 hemoglobin, 38.7 hematocrit with 202 platelets. He has a 138 sodium, potassium 4.4, BUN 17, creatinine 0.8, GFR is greater than 60, sugar is 130, calcium is 9.2, phosphorous 3.4, magnesium 2.1, total bili is 0.7, AST is 43, ALT is 42, alk phos is total protein 7.4. ASSESSMENT AND PLAN: He is being seen by Cardiology. He should go for cardiac cath today, then we will see how he progresses and how he does. He is from [facility], I believe and when Dr. Katz says I could discharge him, I will and we will get him down there hopefully in the next 24 hours, possibly tomorrow. Karthikeyan Pleitez DO [facility]TD[facility]
[2018-10-05] MEDS ORDERED: Verapamil 2 ML ONE (12:25)
[2018-10-05] MEDS ORDERED: Lidocaine 2% PF (10 ml) Amp ONE (12:25)
[2018-10-05] MEDS ORDERED: Iodixanol 320 MG/ML 200 ML BOTTLE IV ONE (12:26)
[2018-10-05] MEDS ORDERED: Iohexol 350mgl/ml 50 ML ONE (12:26)
[2018-10-05] MEDS ORDERED: Iodixanol 320 MG/ML 100 ML BOTTLE IV ONE (12:26)
[2018-10-05] MEDS ORDERED: Nitroglycerin 50mg in D5W 50 MG/250 ML BOTTLE IV ONE (12:26)
[2018-10-05] MEDS ORDERED: Phenylephrine 10 mg/ml Inj ONE (13:15)
[2018-10-05] MEDS ORDERED: Midazolam 2 MG/2 ML VIAL ONE (13:37)
[2018-10-05] MEDS ORDERED: Eptifibatide 20 mg/10mL Inj IVP ONE (13:55)
[2018-10-05] MEDS ORDERED: Sodium Chloride 0.9% 1,000 ML IV SCH (14:45)
--- NOTE | 2018-10-05 15:26 | CPOSTOP ---
DATE: 10/05/2018 CARDIOVASCULAR LAB POST PROCEDURE NOTE DICTATING PHYSICIAN: Reny Katz MD HOSPITAL MANAGER: Harpreet Mane, auto electrical technician. TYPE OF ANESTHESIA: Moderate conscious sedation. Total dose given 2 mg of Versed, 50 of fentanyl. PRE-PROCEDURE DIAGNOSIS: Acute ST-segment myocardial infarction, status post tissue plasminogen activator. PROCEDURE PERFORMED: 1. Left heart catheterization. 2. Stenting of the right coronary artery. FINDINGS: One-vessel disease, RCA proximal to mid multiple stenoses in the range of 80-90%. FINAL DIAGNOSIS: Single-vessel coronary artery disease. POST PROCEDURE CONDITION: Post procedure, the patient's condition is stable. VASCULAR ACCESS SITE: Left radial. CLOSURE DEVICE: TR Band. TOTAL RADIATION DOSE: 24,888.5 milligray unit. TOTAL FLUORO TIME: 8.9 minutes. Reny Katz MD
--- NOTE | 2018-10-05 18:47 | CARD ---
APPROVED REPORT Date of service: 10/05/2018 Procedure(s) performed: Left Heart Catheterization PTCA with Stenting proximal to Mid RCA with AMANDA HISTORY The patient is a 68 year-old male with a history of : most recent EF: 50%. (EF Method: Echocardiogram), previous CVA , peripheral vascular disease, diabetes mellitus with insulin treatment , chronic lung disease, hypertension , dyslipidemia , cerebrovascular disease , S/p IWMI in Cruise Ship S/p TPA with resolution of ST segment and chest pain, admitted 24 -48 hours post tPA to [facility] with PVCs, Hx of Morbid Obesity body weight more than 360 lbs.. INDICATION The indication(s) include : STEMI (>48 hrs to = 72 hrs). CASE TECHNIQUE The patient was brought Semi-Elective/ Salvage to the Cardiac Catheterization Laboratory in a fasting state and was prepped and draped in a sterile manner. The left wrist was infiltrated with 2% Lidocaine subcutaneous anesthesia. A 6FR GLIDESHEATH ACCESS KIT sheath was inserted into the left radial artery without difficulty. Coronary angiography was performed using coronary diagnostic catheters. The left coronary system was accessed and visualized with a Diagnostic ,6 Fr JL 4 catheter. The right coronary system was accessed and visualized with a Diagnostic ,6F JR 4 CATH DXT 100 CM catheter. The left ventricle was accessed and visualized with a 6F PIGTAIL 145 CATH DXT 110 CM catheter. Left ventricular/Aortic Valve gradient assessed on pullback. Left ventriculogram was performed in PERSAUD projection. Closure device was deployed with a Fr TR Band (Large) without any complications. The patient tolerated the procedure well and there were no complications associated with the procedure. Vessel Analysis The patient's coronary anatomy is right dominant. The left main coronary artery is a large size vessel without significant stenosis. The left main bifurcates to the left anterior descending and circumflex. The left anterior descending artery is a medium size vessel with diffuse calcification noted throughout this vessel and without significant stenosis. There is a 50% stenosis in the mid segment. The first diagonal branch is a small size vessel with diffuse calcification noted throughout this vessel and without significant stenosis. The second diagonal branch is a small size vessel with diffuse calcification noted throughout this vessel and without significant stenosis. The circumflex artery is a medium size vessel with diffuse calcification noted throughout this vessel and without significant stenosis. There is a 60% stenosis in the proximal segment. The first obtuse marginal branch is a medium size vessel with diffuse calcification noted throughout this vessel and without significant stenosis. The right coronary artery is a large size vessel with diffuse calcification noted throughout this vessel and with significant stenosis. There is a 90% stenosis in the proximal to Midsegment. Multiple stenoses with ulcerated plaque, Culprit for IWMI The right posterior descending artery is a medium size vessel with diffuse calcification noted throughout this vessel and without significant stenosis. There is a 40-50% stenosis in the proximal segment. The right posterolateral branch is a medium size vessel with diffuse calcification noted throughout this vessel and without significant stenosis. Left Ventricle The left ventricle is Normal in size with normal contractility. There was no cardiomyopathy. The left ventricular ejection fraction is estimated to be 55%. The left ventricular end diastolic pressure is 16-20 mmHg. with respiratory variation There was no gradient across the aortic valve upon pullback. PCI Technique Lesion Anticoagulation was achieved with Heparin and integrellin Bollous. Percutaneous coronary intervention was performed on the Proximal to mid right coronary artery. The lesion stenosis prior to intervention was 90% with IRIS 2 flow. A 6 Fr JR 4 Guide Catheter was used to engage the ostium. A Luge 182 Interventional Guidewire was used to cross the lesion. BALLOON DILATION A Balloon catheter 3.0 x 15 mm Sprinter RX was inserted and inflated up to 14.00atm for 24seconds. STENT DEPLOYMENT A drug-eluting stent STENT RESOLUTE HERNANDEZ 4.0 X 38 was inserted and inflated up to 14.00atm for 13seconds. POST STENT DEPLOYMENT BALLOON DILATION A Balloon catheter 4.5 x 21 mm Sprinter NC was inserted and inflated up to 20.00atm for 120seconds. Final angiography reveals 0 % stenosis with IRIS 3 flow. Conclusion Single Vessel Critical Diz, RCA proximal to Mid Multiple Stenoses with ulcerated plaque , culprit for STEMI. Preserved Lv Fx. EF-55%. [id number] mmof hg. Successful PTCA with AMANDA of Proximal to mid RCA with AMANDA. Recommendations Cardiac Rehabilitation Referral Aggressive Medical TherapyCardiac Risk Reduction Program Weight Loss Reduction Program ASA 81 mg and Brilanta 90 mg po BID mandatory for one year. Add HUMERA, Coreg, and statin. Pulmonary Eval for [facility]; Nadia Varela/ Luís Palomo ( [place]).
[2018-10-05 19:02] LABS: BASO # 0.02 K/mm3 (0.0-2.0); BASO % 0.3 % (0.0-3.0); EOS # 0.1 (0.0-0.7); EOS % 1.1 % (1.5-5.0); GRAN # 5.58 (1.4-6.5); GRAN % 74.8 % (50.0-68.0); LYMPH # 1.3 (1.2-3.4); LYMPH % 17.4 % (22.0-35.0); MEAN CELL VOLUME 89.9 fl (80.0-105.0); MEAN CORPUSCULAR HEMOGLOBIN 30.6 pg (25.0-35.0); MEAN PLATELET VOLUME 8.8 fl (7.0-11.0); MONO # 0.5 (0.1-0.6); MONO % 6.4 % (1.0-6.0); RBC 4.25 10^6/uL (3.5-6.1); RED CELL DISTRIBUTION WIDTH 13.6 % (11.5-14.5); WHITE BLOOD COUNT 7.5 10^3/uL (4.5-11.0)
[2018-10-05] MEDS ORDERED: Bacitracin 500 Units/gm Oint Foilpak UD ONE (19:09)
[2018-10-05 19:10] LABS: BLOOD UREA NITROGEN 17 mg/dL (7-21); CALCIUM 9.2 mg/dL (8.4-10.5); GFR NON-AFRICAN AMERICAN > 60
[2018-10-05 21:14] VITALS: RESP 20
[2018-10-06 00:26] VITALS: TEMP 98.8
[2018-10-06 05:21] VITALS: PULSE 84
[2018-10-06 06:35] VITALS: O2SAT 97
--- NOTE | 2018-10-06 06:44 | CP.PCM.PN ---
Subjective - Date & Time of Evaluation Date of Evaluation: 10/06/18 Time of Evaluation: 06:25 - Subjective Subjective: Awake, alert,denies chest pain, denies shortness of breath, no distress, post cath/PTCA yesterday Reason for consultation and follow up: Cardiac evaluation of chest pain, STEMI [place], Seen and examined by me and Dr. Katz Objective - Vital Signs/Intake and Output Vital Signs (last 24 hours): Temp Pulse Resp BP Pulse Ox 98.8 F 84 20 139/82 97 10/06/18 06:00 10/06/18 06:00 10/06/18 06:00 10/06/18 06:00 10/06/18 06:00 Intake and Output: 10/05/18 10/06/18 18:59 06:59 Intake Total 240 Output Total 550 Balance -310 - Medications Medications: Current Medications Amlodipine Besylate (Norvasc) 5 mg PO DAILY [facility] Last Admin: 10/05/18 10:44 Dose: Not Given Aspirin (Ecotrin) 81 mg PO DAILY [facility] Last Admin: 10/05/18 10:42 Dose: 81 mg Atorvastatin Calcium (Lipitor) 20 mg PO DIN [facility] Last Admin: 10/05/18 18:07 Dose: 20 mg Home Med (Home Med) 1 unit IH DAILY PRN PRN Reason: Allergy symptoms Insulin Human Regular (Humulin R Med) 0 units SC [facility]; Protocol Last Admin: 10/05/18 22:29 Dose: Not Given Lisinopril (Zestril) 2.5 mg PO DAILY [facility] Last Admin: 10/05/18 10:46 Dose: Not Given Metoprolol Tartrate (Lopressor) 25 mg PO BID [facility] Last Admin: 10/05/18 18:07 Dose: 25 mg Ticagrelor (Brilinta) 90 mg PO BID [facility] Last Admin: 10/05/18 18:12 Dose: 90 mg - Labs Labs: 10/05/18 18:57 10/05/18 18:57 PT 12.4 SECONDS (9.4-12.5) 10/03/18 08:25 INR 1.08 10/03/18 08:25 APTT 33.7 Seconds (25.1-36.5) 10/03/18 08:25 - Constitutional Appears: Non-toxic, No Acute Distress - Head Exam Head Exam: NORMAL INSPECTION, NORMOCEPHALIC - Eye Exam Eye Exam: Normal appearance Pupil Exam: NORMAL ACCOMODATION - ENT Exam ENT Exam: Mucous Membranes Moist, Normal Exam - Respiratory Exam Respiratory Exam: Clear to Ausculation Bilateral, NORMAL BREATHING PATTERN - Cardiovascular Exam Cardiovascular Exam: +S1, +S2 Additional comments: Telemetry NSR with first degree block 70's - GI/Abdominal Exam GI & Abdominal Exam: Soft, Normal Bowel Sounds - Extremities Exam Extremities Exam: Full ROM, Normal Capillary Refill Additional comments: left wrist no bleeding,no hematoma positive pulses - Neurological Exam Neurological Exam: Alert, Awake, Oriented x3 - Psychiatric Exam Psychiatric exam: Normal Affect, Normal Mood - Skin Skin Exam: Dry, Normal Color, Warm Assessment and Plan - Assessment and Plan (Free Text) Assessment: A 68 year old morbidly obese male who was [place] the [place] due to worsening chest pain for the past 4 days prior to admission. Mid sternal chest pain radiating to back and epigastric area associated with shortness of breath. He thought to be indigestion and took antacids and rubbed Greg-Casas. He was seen by Cruise Physician and 12 lead EKG showed STEMI in leads II,III,AVF. He was given TPA, Aspirin and Nitroglycerin and started on Plavix. Chest pain was resolved and resolution of ST segment elevations. He lives in [facility] and follows up with Dr. Robles. History of hypertension,NIDDM2, HTN, hypercholesterolemia, obesity, cholecystectomy, knee replacement, right toe amputation,current smoker since age 12 year old. occasional alcohol drinker. At [facility], patient chest pain free, EKG, no ST elevations. Brilinta given. Post cardiac catheterization tand PTCA with AMANDA yesterday. Proximal to mid RCA multiple stenosis with ulcerated plaque culprit for STEMI, successful PTCA with AMANDA of RCA. Brilinta and Aspirin for at least a year. Plan: Post cardiac catheterization and PTCA with AMANDA yesterday. Proximal to mid RCA multiple stenosis with ulcerated plaque culprit for STEMI, Successful PTCA with AMANDA of RCA. Brilinta and Aspirin for at least a year. Controlled heart rate Controlled blood pressure On Norvasc 5 mg daily,ASA 81 mg daily, Lovenox 120 mg BID,Lisinopril 2.5 mg daily Lopressor 25 mg BID, Brilinta 80 mg BID Continue current medications Continue current treatment Lifestyle modification Smoking cessation Weight reduction May discharge today and follow up with It Admin in [facility] Chart reviewed Will follow up Plan and treatment discussed with Dr. Katz
[2018-10-06 06:57] LABS: ALB/GLOB RATIO 1.2 (1.1-1.8); ALT/SGPT 48 U/L (7-56); AST/SGOT 43 U/L (17-59); BLOOD UREA NITROGEN 14 mg/dL (7-21); CALCIUM 9.2 mg/dL (8.4-10.5); GFR NON-AFRICAN AMERICAN > 60
[2018-10-06 07:04] LABS: HEMOGLOBIN 12.8 g/dL (14.0-18.0); MEAN CELL VOLUME 89.1 fl (80.0-105.0); MEAN CORPUSCULAR HEMOGLOBIN 30.3 pg (25.0-35.0); MEAN PLATELET VOLUME 9.2 fl (7.0-11.0); RBC 4.23 10^6/uL (3.5-6.1); RED CELL DISTRIBUTION WIDTH 13.6 % (11.5-14.5); WHITE BLOOD COUNT 7.5 10^3/uL (4.5-11.0)
[2018-10-06] MEDS: Insulin Reg-MEDIUM-Coverage SC SCH ×2 (07:23→12:11)
[2018-10-06 09:18] VITALS: BP 132/72
--- NOTE | 2018-10-06 09:33 | PN ---
DATE: 10/05/2018 This note is in addition to note dictated by nurse practitioner, Vivi Denton. REASON FOR CONSULTATION: ST myocardial infarction, status post t-PA in cruise. The patient underwent cardiac catheterization, found single-vessel coronary artery disease, right coronary artery, multiple 80% to 90% stenosis with ulcerated plaque noted. The patient had successfully drug-coated stent deployed in RCA, that was a left radial approach. Plan is to continue aspirin and Brilinta mandatory for one year, prefer for extended period of time. Continue atorvastatin, continue lisinopril, continue Coreg. We will repeat the blood workup and if stable, possible discharge home tomorrow. Thank you, Dr. Pleitez, for providing us the opportunity in taking care of the patient, Mike Womack. Reny Katz MD
--- NOTE | 2018-10-06 12:30 | CARD ---
APPROVED REPORT Date of service: 10/06/2018 EKG Measurement Heart [id number] <Conclusion> Sinus rhythm with 1st degree AV block Inferior wall Mi of UA Abnormal ECG
--- NOTE | 2018-10-06 12:31 | PN ---
DATE: 10/06/2018 REASON FOR CONSULTATION AND FOLLOWUP: Acute STEMI status post TPA, status post PTCA of RCA yesterday. SUBJECTIVE: Patient remains stable. Denies any chest pain, shortness of breath or any palpitation. OBJECTIVE: GENERAL: Not in apparent distress. LABORATORY DATA: Today's lab is within normal limits. IMPRESSION: A 68-year-old male with diabetes, hypertension, hyperlipidemia, morbid obesity. While he was in a cruise, had inferior wall myocardial infarction, status post TPA with resolution of the chest pain. An EKG was having PVCs. The patient underwent complex PTCA of RCA with a drug-eluting stent from the left radial approach. Cardiac arroyo, patient is stable. RECOMMENDATION: Continue lisinopril 2.5 mg daily, continue Brilinta 90 mg twice, continue aspirin 81 mg daily, atorvastatin 20 mg daily, metoprolol. Patient will follow up upon discharge with Dr. Raul Rodriguez at [facility]. CD films from the patient was given to them, and also explained once the patient gets discharged, fill the release of information to Dr. Rodriguez and all the information from hospital, we transferred to them. Also suggested mandatory to continue aspirin once a day and Brilinta twice a day for 1 year. Also, suggested emphasis of weight reduction, consider gastric bypass because patient is morbidly obese, admitting weight was [address] Pleitez for providing us the opportunity in taking care of the patient, Mike Womack. Lifestyle modification and risk factor for coronary artery disease is recommended. Reny Katz MD
--- NOTE | 2018-10-06 18:56 | DS ---
HISTORY OF PRESENT ILLNESS: He was a [place] man from the cruise [place], who had a heart attack on the cruise ship, that is cardiac cath with stent placement with Dr. Katz. He is on Brilinta, Ecotrin, Lipitor, Lopressor, Norvasc and Zestril. REVIEW OF SYSTEMS: He is feeling a whole lot better this morning. He is comfortable. No chest pain, shortness of breath, abdominal pain. He is eating well. He is walking better. Overall much improved. PHYSICAL EXAMINATION: VITAL SIGNS: He has a 98.8 temperature, 84 pulse, 139/82 blood pressure, 20 respiratory rate, 97% O2 sat on room air. HEENT: His head is atraumatic, normocephalic. HEART: Regular rate. LUNGS: Decreased breath sounds, but clear. ABDOMEN: Morbidly, morbidly obese, nontender. Positive bowel sounds. EXTREMITIES: Trace edema, but better than when he came in. LABORATORY DATA: He has a 7.5 white count, 12.8 hemoglobin, 37.7 hematocrit with 211 platelets. He has a 137 sodium, potassium 4.4, BUN 14, creatinine 0.8, GFR is greater than 60, sugar is 125. Calcium is 9.2, phosphorous 3.3, magnesium 2.1, total bili is 0.9, AST is 43, ALT is 40, alk phos 71, total protein 7.5. ASSESSMENT AND PLAN: He did well. He had the stents placed status post myocardial infarction on the cruise ship. He will be discharged today back to [facility], I believe, he is from [place]. 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 Prescriptions were given. Instructions were given. Diet was given. Hopefully, he will do well and lose weight and no-sugar, no-salt diet. Karthikeyan Pleitez DO
== END 2018-10-06 12:18 | disposition home or self-care (01) | DRG 247 ==
LOC: ED 07:35 → ERH 08:45 → 2RNO 09:03 → 2RSO 10-05 14:41
PROVIDERS: ADMIT Family Medicine; ATTEND Family Medicine
PROC: 027034Z Dilation of Coronary Artery, One Artery with Drug-eluting Intraluminal Device, Percutaneous Approach (ICD-10-PCS; principal; 2018-10-05)
PROC: 4A023N7 Measurement of Cardiac Sampling and Pressure, Left Heart, Percutaneous Approach (ICD-10-PCS; 2018-10-05)
PROC: B2111ZZ Fluoroscopy of Multiple Coronary Arteries using Low Osmolar Contrast (ICD-10-PCS; 2018-10-05)
PROC: B2151ZZ Fluoroscopy of Left Heart using Low Osmolar Contrast (ICD-10-PCS; 2018-10-05)
PROC: 3E033PZ Introduction of Platelet Inhibitor into Peripheral Vein, Percutaneous Approach (ICD-10-PCS; 2018-10-05)
DX: I21.19 ST elevation (STEMI) myocardial infarction involving other coronary artery of inferior wall (principal); Z68.43 Body mass index [BMI] 50.0-59.9, adult; Z68.42 Body mass index [BMI] 45.0-49.9, adult; I10 Essential (primary) hypertension; I25.10 Atherosclerotic heart disease of native coronary artery without angina pectoris; E11.9 Type 2 diabetes mellitus without complications; E66.01 Morbid (severe) obesity due to excess calories; F17.200 Nicotine dependence, unspecified, uncomplicated; I49.3 Ventricular premature depolarization; I67.9 Cerebrovascular disease, unspecified; Z79.4 Long term (current) use of insulin; Z82.49 Family history of ischemic heart disease and other diseases of the circulatory system; Z83.3 Family history of diabetes mellitus; E78.5 Hyperlipidemia, unspecified; E78.00 Pure hypercholesterolemia, unspecified; F10.10 Alcohol abuse, uncomplicated; Z86.73 Personal history of transient ischemic attack (TIA), and cerebral infarction without residual deficits; Z89.421 Acquired absence of other right toe(s); Z96.652 Presence of left artificial knee joint; Z98.61 Coronary angioplasty status